=== PATIENT | male | born 1970 | race Caucasian/White ===

== ENCOUNTER 2019-04-29 10:24 | Emergency (ER) | payer OTHER ==
[~2019-04-29] VITALS: Ht 177.8 cm; Wt 150.0 kg
--- NOTE | 2019-04-29 11:08 | NUR ---
patient in bed in reverse [place] to elevate left ankle ice bags 2 on left ankle
[2019-04-29] MEDS ORDERED: ketorolac tromethamine 15mg/ml inj. IM ONE (11:20)
[2019-04-29 11:39] VITALS: BP 135/81
== END 2019-04-29 11:42 | disposition home or self-care (01) ==
LOC: ER 10:25
DX: M25.572 Pain in left ankle and joints of left foot (principal); X50.1XXA Overexertion from prolonged static or awkward postures, initial encounter; Y93.89 Activity, other specified; Y92.89 Other specified places as the place of occurrence of the external cause; Y99.9 Unspecified external cause status
CPT/HCPCS: 73610; 96372; 99284; J1885

== ENCOUNTER 2019-12-02 12:33 | Day surgery (SDC) | payer OTHER ==
[2019-11-24 16:51] LABS: PRE OP PROTIME 10.4 SECONDS (9.0-12.0)
[2019-11-24 16:53] LABS: EOSINOPHILS # (AUTO) 0.2 X10'3 (0-0.9); LYMPHOCYTES # (AUTO) 1.8 X10'3 (1.1-4.8); MEAN PLATELET VOLUME 7.1 FL (7.4-10.4); MONOCYTES # (AUTO) 0.7 X10'3 (0-0.9)
[2019-11-24 16:54] LABS: BASOPHILS % (AUTO) 0.4 % (0-1); EOSINOPHILS % (AUTO) 2.9 % (0-6); LYMPHOCYTES % (AUTO) 24.4 % (21-51); MEAN CORPUSCULAR HEMOGLOBIN 30.5 PG (27.0-31.0); MEAN CORPUSCULAR HGB CONC 34.2 g/dL (33.0-36.5); MEAN CORPUSCULAR VOLUME 89.3 FL (78-98); MONOCYTES % (AUTO) 8.8 % (2-12); NEUTROPHILS # (AUTO) 4.8 X10'3 (1.8-7.7); NEUTROPHILS % (AUTO) 63.5 % (42-75); PRE OP HEMATOCRIT 50.4 % (42.0-52.0); PRE OP HEMOGLOBIN 17.3 g/dL (14.0-17.9); PRE OP PLATELET COUNT 301 X10'3 (140-440); RED BLOOD COUNT 5.65 X10'6 (4.70-6.10)
[2019-11-24 16:55] LABS: ALBUMIN 4.4 G/DL (3.4-5.0); ALBUMIN/GLOBULIN RATIO 1.3 (1.1-1.5); ALKALINE PHOSPHATASE 87 IU/L (46-116); BLOOD UREA NITROGEN 23 MG/DL (7-18); BUN/CREATININE RATIO 16.2 (5.4-32.0); CALCIUM 9.7 MG/DL (8.5-10.1); CHLORIDE 102 MMOL/L (99-107); CREATININE 1.42 MG/DL (0.60-1.10); PRE OP ALT 50 U/L (30-65); PRE OP ANION GAP 7 (8-16); PRE OP AST 20 U/L (10-37); PRE OP BILIRUB, TOTAL 0.4 MG/DL (0.0-1.0); PRE OP GLUCOSE 110 MG/DL (70-104); PRE OP POTASSIUM 3.9 MMOL/L (3.4-5.1); PRE OP SODIUM 141 MMOL/L (135-145); TOTAL CARBON DIOXIDE 32.1 MMOL/L (24-32); TOTAL PROTEIN 7.8 G/DL (6.4-8.2); eGFR 53 ML/MIN
[~2019-12-02] VITALS: Ht 175.3 cm; Wt 148.9 kg
[2019-12-02] VITALS (8 sets, daily range): BP systolic 98–139; BP diastolic 67–89
[~2019-12-02 12:33] MED LIST: HCTZ25T PO; LOSA50TA3 PO; PIOG45TA65 PO; TEST75GE TOP; ceFAZolin inj. 3,000 MG in normal saline 100ml IV soln 100 ML IV ONE; famotidine 20mg tablet PO ONE; ringers solution, lacted 1,000 ML IV SCH; vancomycin 1,500 MG in NS 500ml IV soln IV ONE
[2019-12-02] MEDS ORDERED: ondansetron/PF 4mg/2ml inj ONE (14:10)
[2019-12-02] MEDS ORDERED: ePHEDrine 50MG/ML INJ. ONE (14:10)
[2019-12-02] MEDS ORDERED: sevoflurane 250ml liquid IH ONE (14:10)
[2019-12-02] MEDS ORDERED: cloNIDine hcl/PF 100mcg/ml inj ONE (14:11)
[2019-12-02] MEDS ORDERED: BUPIVAcaine/PF 2.5 mg/ml (0.25%) 30ml vial ONE ×3 (14:11→16:01)
[2019-12-02] MEDS ORDERED: fentaNYL/PF 50MCG/1 ML 2ML syringe ONE (14:12)
[2019-12-02] MEDS ORDERED: midazolam 2 mg/2 ml injection ONE (14:17)
[2019-12-02] MEDS ORDERED: propofol inj 20 ML IV ONE (15:00)
[2019-12-02] MEDS ORDERED: dexamethasone sod phosphate 4mg/ml inj. ONE (15:00)
[2019-12-02] MEDS ORDERED: LIDOcaine 2% (20mg/ml) 5ml vial ONE (15:00)
[2019-12-02] MEDS ORDERED: BUPIVAcaine 0.5% inj/PF 30 ML ONE (15:00)
[2019-12-02] MEDS ORDERED: rocuronium 10mg/ml inj IV ONE (15:00)
[2019-12-02] MEDS ORDERED: morphine 10mg/ml inj. ONE (15:29)
[2019-12-02] MEDS ORDERED: neostigmine methylsulfate 1 MG/ML 10ml vial ONE (16:35)
[2019-12-02] MEDS ORDERED: glycopyrrolate 0.2mg/ml inj ONE (16:35)
[2019-12-02] MEDS ORDERED: ringers solution, lacted 1,000 ML IV SCH (16:52)
--- NOTE | 2019-12-02 16:52 | NUR ---
Received from OR via ortho bed, accompanied by Anesthesiologist Don and report given by Anesthesiolgist. Pt VS stable O2 mask at 10L and sats 94%. 18G elft hand with LR at 100cc/hr. Left ankle wrapped in gauze web dressing cast and GILSON wrap, patient able to wiggle toes and has good cap refill. Pt states no pain.
[2019-12-02] MEDS ORDERED: morphine 2 MG/ML inj. syringe IV PRN (16:55)
[2019-12-02] MEDS ORDERED: labetalol 20mg/4ml (5mg/ml) syringe IV PRN (16:55)
[2019-12-02] MEDS ORDERED: hydrALAZINE 20mg/ml inj. IV PRN (16:55)
[2019-12-02] MEDS ORDERED: ondansetron/PF 4mg/2ml inj IV PRN (16:55)
[2019-12-02] MEDS ORDERED: morphine 4 MG/ML inj SYRINge IV PRN (16:55)
[2019-12-02] MEDS ORDERED: proCHLORperazine 10 MG/2 ml inj IV PRN (16:55)
[2019-12-02] MEDS ORDERED: meperidine/PF 25mg/ml syringe IV PRN ×3 (16:55)
[2019-12-02] MEDS ORDERED: acetaminophen 1,000mg/100ml IV 100 ML IV PRN (16:55)
[2019-12-02] MEDS ORDERED: ketorolac trometh. 30mg/ml inj. IV ONE (16:55)
--- NOTE | 2019-12-02 17:42 | NUR ---
Pt discharged to vehicle by wheelchair without incident. Pt tolerated fluids and IV DC'd prior. Verbalized understanding of all DC information including education on CPAP/sleep apnea and to use mouth piece at home. Toes remain pink and wiggling, cap refill good. Pt has percocets at home from office.
== END 2019-12-02 17:42 | disposition home or self-care (01) ==
LOC: PAS 12:33
PROVIDERS: ATTEND Orthopaedic Surgery
DX: S93.492A Sprain of other ligament of left ankle, initial encounter (principal); S96.812A Strain of other specified muscles and tendons at ankle and foot level, left foot, initial encounter; M24.572 Contracture, left ankle; M25.372 Other instability, left ankle; M65.872 Other synovitis and tenosynovitis, left ankle and foot; E11.9 Type 2 diabetes mellitus without complications; I10 Essential (primary) hypertension; E66.01 Morbid (severe) obesity due to excess calories; Z68.42 Body mass index [BMI] 45.0-49.9, adult; Z72.89 Other problems related to lifestyle; F17.290 Nicotine dependence, other tobacco product, uncomplicated; Z98.890 Other specified postprocedural states; Z11.59 Encounter for screening for other viral diseases; Z79.899 Other long term (current) drug therapy; Z79.01 Long term (current) use of anticoagulants; G89.18 Other acute postprocedural pain; X58.XXXA Exposure to other specified factors, initial encounter; Y93.89 Activity, other specified; Y92.89 Other specified places as the place of occurrence of the external cause; Y99.8 Other external cause status
CPT/HCPCS: 27625; 27698; 36415; 64445; 80053; 82948; 85025; 85610; 85730; 93005; A6222; C1713; J0690; J0735; J1100; J2001; J2250; J2270; J2405; J2704; J2710; J3010; J3370; J3490; J7040; J7120; U0003; A4215; A4618; A6250; A6449; A7000

== ENCOUNTER 2020-06-30 11:43 | Emergency (ER) | payer OTHER ==
[~2020-06-30] VITALS: Ht 175.3 cm; Wt 143.6 kg
[~2020-06-30 11:43] MED LIST changes: -ceFAZolin inj. 3,000 MG in normal saline 100ml IV soln 100 ML IV ONE; -famotidine 20mg tablet PO ONE; -ringers solution, lacted 1,000 ML IV SCH; -vancomycin 1,500 MG in NS 500ml IV soln IV ONE
[2020-06-30 12:52] LABS: BASOPHILS # (AUTO) 0.1 X10'3 (0-0.2); BASOPHILS % (AUTO) 0.9 % (0-1); EOSINOPHILS # (AUTO) 0.3 X10'3 (0-0.9); EOSINOPHILS % (AUTO) 4.2 % (0-6); HEMATOCRIT 45.4 % (42.0-52.0); HEMOGLOBIN 15.6 g/dl (14.0-17.9); LYMPHOCYTES # (AUTO) 1.5 X10'3 (1.1-4.8); LYMPHOCYTES % (AUTO) 20.5 % (21-51); MEAN CORPUSCULAR HEMOGLOBIN 30.1 PG (27.0-31.0); MEAN CORPUSCULAR HGB CONC 34.4 g/dL (33.0-36.5); MEAN CORPUSCULAR VOLUME 87.6 FL (78-98); MEAN PLATELET VOLUME 7.4 FL (7.4-10.4); MONOCYTES # (AUTO) 0.6 X10'3 (0-0.9); MONOCYTES % (AUTO) 7.7 % (2-12); NEUTROPHILS # (AUTO) 4.9 X10'3 (1.8-7.7); NEUTROPHILS % (AUTO) 66.7 % (42-75); PLATELET COUNT 287 X10'3 (140-440); RED BLOOD COUNT 5.18 X10'6 (4.70-6.10); RED CELL DISTRIBUTION WIDTH 12.7 % (11.5-14.5); WHITE BLOOD COUNT 7.4 X10'3 (4.5-11.0)
[2020-06-30 12:57] LABS: CLARITY,URINE CLEAR (Clear); COLOR,URINE YELLOW (Yellow); GLUCOSE, URINE >=1000 mg/dl (Neg); KETONES,URINE 15 mg/dl (Neg); LEUKOCYTE ESTERASE ,URINE NEGATIVE (Neg); NITRITES, URINE NEGATIVE (Neg); OCCULT BLOOD,URINE NEGATIVE (Neg); PH,URINE 5.5 (4.8-8.0); PROTEIN,URINE NEGATIVE (Neg); UROBILINOGEN,URINE 0.2 E.U/dL (0.2-1.0)
[2020-06-30 13:04] LABS: UA COLLECTION TYPE CLN CATCH MIDSTREAM
[2020-06-30 13:05] LABS: BACTERIA,URINE NONE SEEN /HPF (Neg); MUCUS STRANDS NONE SEEN /LPF (Neg); RBC,URINE NONE SEEN /HPF (0-2); SQUAMOUS EPITHELIAL CELL,UR NONE SEEN /LPF (FEW); WBC,URINE NONE SEEN /HPF (0-4)
[2020-06-30 13:11] LABS: ALANINE AMINOTRANSFERASE 78 U/L (12-78); ALBUMIN 4.3 G/DL (3.4-5.0); ALBUMIN/GLOBULIN RATIO 1.2 (1.1-1.5); ALKALINE PHOSPHATASE 162 IU/L (46-116); ANION GAP 13 (8-16); ASPARTATE AMINO TRANSFERASE 24 U/L (10-37); BILIRUBIN,TOTAL 0.7 MG/DL (0.1-1.0); BLOOD UREA NITROGEN 20 MG/DL (7-18); BUN/CREATININE RATIO 16.8 (5.4-32.0); CALCIUM 9.8 MG/DL (8.5-10.1); CHLORIDE 95 MMOL/L (99-107); CREATININE 1.19 MG/DL (0.60-1.10); POTASSIUM 4.2 MMOL/L (3.5-5.1); SODIUM 131 MMOL/L (135-145); TOTAL CARBON DIOXIDE 22.9 MMOL/L (24-32); TOTAL PROTEIN 7.9 G/DL (6.4-8.2); eGFR 65 ML/MIN
[2020-06-30 13:15] LABS: GLUCOSE 490 MG/DL (70-104)
[2020-06-30] MEDS ORDERED: insulin regular, human 10 units/0.1 ml syringe SQ ONE (13:25)
[2020-06-30] MEDS ORDERED: normal saline 1000ML IV soln IVB ONE (13:25)
[2020-06-30 14:55] VITALS: BP 128/83
== END 2020-06-30 14:59 | disposition home or self-care (01) ==
LOC: ER 11:43
DX: E11.65 Type 2 diabetes mellitus with hyperglycemia (principal); Z79.899 Other long term (current) drug therapy
CPT/HCPCS: 36415; 80053; 81001; 82948; 85025; 96360; 96372; 99284; J1815; J7030

== ENCOUNTER 2024-02-13 11:41 | Outpatient (CLI) | payer OTHER ==
[~2024-02-13 11:41] MED LIST changes: -HCTZ25T PO; +HYDR25TA5 PO; +LOSA-416 PO; -LOSA50TA3 PO
== END 2024-02-13 23:59 | disposition home or self-care (01) ==
LOC: RAD 11:41
PROVIDERS: ATTEND Chiropractor
DX: M51.34 Other intervertebral disc degeneration, thoracic region (principal); M47.814 Spondylosis without myelopathy or radiculopathy, thoracic region
CPT/HCPCS: 72070